=== PATIENT | male | born 1990 | race Caucasian/White ===

== ENCOUNTER 2024-01-10 13:30 | Emergency (ER) | payer MEDICAID ==
[~2024-01-10] VITALS: Ht 162.6 cm; Wt 86.0 kg
[2024-01-10 13:35] VITALS: BP 133/88; TEMP 99; O2SAT 97
[2024-01-10 14:54] VITALS: PULSE 90; RESP 20; O2SAT 94
[2024-01-10] MEDS: IPRATROPIUM/ALBUTEROL 0.5-3(2.5)MG/3ML NEB HHN ONE (14:54)
[2024-01-10] MEDS: PREDNISONE 20MG TABLET PO ONE (15:00)
[2024-01-10 15:04] LABS: CARBON DIOXIDE 26 mEq/L (21-32); CHLORIDE 105 mEq/L (98-107); POTASSIUM 3.8 mEq/L (3.5-5.1); SODIUM 141 mEq/L (136-145)
[2024-01-10 15:10] LABS: CREATININE 1.2 mg/dL (0.6-1.3); GLUCOSE 107 mg/dL (70-105); UREA NITROGEN BLOOD 9 mg/dL (9-23)
[2024-01-10 15:11] LABS: ALANINE AMINOTRANSFERASE 54 IU/L (10-49)
[2024-01-10 15:12] LABS: ASPARTATE AMINOTRANSFERASE 28 IU/L (<34); BILIRUBIN TOTAL 0.6 mg/dL (0.1-1.0); PROTEIN TOTAL 8.5 g/dL (6.0-8.3)
[2024-01-10 15:17] LABS: BASOPHILS % 0.3 % (0.0-2.0); EOSINOPHILS % 1.1 % (0.0-5.0); HEMATOCRIT. 38.4 % (42.0-52.0); HEMOGLOBIN. 12.9 g/dL (14.0-18.0); LYMPHOCYTES % 9.9 % (20.0-50.0); MEAN CORPUSCULAR HEMOGLOBIN 29.1 pg (28.0-32.0); MEAN CORPUSCULAR HGB CONC 33.7 g/dL (31.0-37.0); MEAN CORPUSCULAR VOLUME 86.3 fL (80.0-94.0); MEAN PLATELET VOLUME 8.2 fl (7.4-10.4); MONOCYTES % 5.7 % (2.0-8.0); PLATELET 355 x1000/uL (130-400); RED BLOOD CELL COUNT 4.45 mill/uL (4.7-6.1); RED CELL DISTRIBUTION WIDTH 13.2 % (11.6-14.6); WHITE BLOOD COUNT 20.9 x1000/uL (4.5-11.0)
[2024-01-10] MEDS ORDERED: AMOX-494 MT (16:05)
[2024-01-10] MEDS ORDERED: LOPE2CAP MT (16:05)
== END 2024-01-10 16:23 | disposition home or self-care (01) ==
LOC: ER 13:30
DX: J20.8 Acute bronchitis due to other specified organisms (principal); Z20.822 Contact with and (suspected) exposure to COVID-19
CPT/HCPCS: 80053; 83690; 85025; 36415; 71045; 94640; 99284; 87426; J7512; Z7610 ×2